=== PATIENT | female | born 1975 | race Caucasian/White ===

== ENCOUNTER → 2019-04-23 11:28 | Outpatient (CLI) | payer BC, SELFPAY ==
--- NOTE | ~2019-04-23 | MM_ITS ---
EXAMINATION: MM screening [facility] BI w raudel HISTORY: Screening mammogram TECHNIQUE: Craniocaudal and mediolateral oblique 3-D tomosynthesis images were obtained and synthetic 2-D images were generated. CAD analysis was submitted and interpreted. COMPARISON: No prior mammogram is available for comparison at this institution. BREAST PARENCHYMAL COMPOSITION: The breasts are heterogeneously dense, which may obscure small masses . FINDINGS: RIGHT BREAST: There are masses in the middle and posterior third of the outer breast. LEFT BREAST: A mass is present in the posterior third of the outer breast. IMPRESSION: 1. Bilateral breast masses which may represent the patient's baseline however no comparison is curren tly available. 2. Comparison with prior mammograms is necessary. BI-RADS Category 0: Incomplete: Needs comparison with prior mammograms. Reviewed, dictated and finalized at location A. IMPRESSION: 1. Bilateral breast masses which may represent the patient's baseline however n o comparison is currently available. 2. Comparison with prior mammograms is necessary. BI-RADS Category 0: Incomplete: Needs comparison with prior mammograms.
== END ==
PROVIDERS: PCP Physician Assistant; Visit Provider Obstetrics & Gynecology
DX: Z12.31 Encounter for screening mammogram for malignant neoplasm of breast (principal); R92.8 Other abnormal and inconclusive findings on diagnostic imaging of breast
CPT/HCPCS: 77063; 77067

== ENCOUNTER → 2019-05-28 09:42 | Outpatient (CLI) | payer BC, SELFPAY ==
--- NOTE | ~2019-05-28 | MMUS_ITS ---
EXAMINATION: MM diagnostic [facility] BI w raudel, US breast BI limited HISTORY: Follow-up bilateral breast masses TECHNIQUE: Additional 3-D tomosynthesis images of the breasts were performed and synthetic 2-D images were generated. CAD analysis was submitted and interpreted. High resolution bilateral breast ultraso und was performed. COMPARISON: Comparison to multiple prior studies sequentially, with oldest reviewed study dated 03/14. FINDINGS: MAMMOGRAPHIC FINDINGS: The breasts are heterogenously dense, which may obscure small masses. There are persistent masses in the lateral aspect of the right breast which are partially obscured by fibroglandular tissue. The foc al mass in the lower aspect of the left breast on MLO view on screening examination is best seen post eriorly and inferiorly and laterally on the medial lateral view. ULTRASOUND: Right breast ultrasound: There are multiple simple and complicated cysts scattered throughout the right breast at 6, 9, 10 and 12:00 positions, largest at 10:00 7 cm from the nipple measuring 12 mm greatest dimension. Left breast ultrasound: At 4:00, 2 cm from the nipple, there is an 5 mm cyst. Also at this location there is an 8 mm cyst. As corresponds to the mass identified on mammogram. IMPRESSION: 1. Benign findings. No evidence for malignancy in either breast. 2. Routine yearly screening mammogram and regular clinical breast examination are recommended. BI-RADS Category 2: Benign finding(s). Reviewed, dictated and finalized at location A. IMPRESSION: 1. Benign findings. No evidence for malignancy in either breast. 2. Routine yearly screening mammogram and regular clinical breast examination a re recommended. BI-RADS Category 2: Benign finding(s).
== END ==
PROVIDERS: Visit Provider Obstetrics & Gynecology
DX: R92.8 Other abnormal and inconclusive findings on diagnostic imaging of breast (principal)
CPT/HCPCS: 76642; 77062; 77066; G0279

== ENCOUNTER → 2020-04-29 11:11 | Outpatient (CLI) | payer BC, SELFPAY ==
--- NOTE | ~2020-04-29 | CT_ITS ---
EXAMINATION: CT abdomen pelvis w con DATE: 04/29/2020 11:38 INDICATION: Umbilical hernia TECHNIQUE: Computed tomography (CT) of the abdomen and pelvis was performed with 100 mL Omnipaque-350 intravenous contrast. Automated exposure control and iterative reconstruction technique were employe d. The dose-length product was 749.29 mGy-cm. COMPARISON: None FINDINGS: Lung bases are clear. Heart size is normal. No pericardial or pleural effusion. A few small well-defi damien low-attenuation hepatic cysts, the largest in the left hepatic lobe measuring 1.3 cm in maximal d iameter. Gallbladder, spleen, pancreas, bilateral adrenal glands and kidneys are normal. No abnormal bowel wall thickening or obstruction. Bladder, anteverted uterus and left adnexa are unremarkable. 4. 4 x 2.9 cm right adnexal cyst. Small fat-containing umbilical hernia measuring 2 cm in maximal diamet er with 10 x 5 mm orifice. No free intraperitoneal gas or fluid. No pathologically enlarged abdominal or pelvic lymphadenopathy. 1.8 cm diameter nonaggressive lytic lesion with well-defined thin sclerot ic margins and without cortical erosion at the superolateral metaphyseal region of the left femoral n dusty. There is ring and arc-like chondroid matrix within the lesion consistent with an enchondroma. IMPRESSION: 1. Small fat-containing umbilical hernia. Reviewed, dictated and finalized at location B.
== END ==
PROVIDERS: PCP Physician Assistant; Visit Provider Physician Assistant
DX: K42.9 Umbilical hernia without obstruction or gangrene (principal); K44.9 Diaphragmatic hernia without obstruction or gangrene
CPT/HCPCS: 74177; Q9967

== ENCOUNTER → 2020-05-19 04:49 | Outpatient (CLI) | payer BC, SELFPAY ==
[2020-05-19 19:04] LABS: SARS-CoV-2 RNA PCR Negative
== END ==
PROVIDERS: PCP Physician Assistant; Visit Provider Surgery
DX: Z01.812 Encounter for preprocedural laboratory examination (principal); Z20.822 Contact with and (suspected) exposure to COVID-19
CPT/HCPCS: C9803; U0003; U0005

== ENCOUNTER 2020-05-22 01:24 | Day surgery (SDC) | payer BC, SELFPAY ==
[2020-05-18 09:44] VITALS: BMI 25.7
[2020-05-22] VITALS (8 sets, daily range): BP systolic 91–112; BP diastolic 50–75; PULSE 42–60; RESP 10–16; TEMP 36.3–36.6; O2SAT 95–100
--- NOTE | 2020-05-22 11:29 | WPDANESEPP ---
Anes - Eval Pre Procedure Procedure: Operation Date: 05/22/20 13:30 Proposed Procedures p Umbilical Hernia Repair With Mesh - Rommel Muñoz DO Date/Time: 05/22/20 11:29 Pre Op Diagnosis: umbilical hernia Patient Data Age: 44 Gender: F Height: 1.83 m Weight: 86 kg Allergies Allergy/AdvReac Type Severity Reaction Status Date / Time Penicillins Allergy Severe SWELLING Verified 05/18/20 09:44 Home Medications Medication Instructions Recorded Confirmed Type etonogestrel 68 mg subdermal 1 implant SUBDERMAL ONCE 04/30/20 05/18/20 History implant multivitamin 1 tablet PO DAILY 04/30/20 05/18/20 History Patient hx anesthesia problems: none Family hx anesthesia problems: none PMFSH Past Medical History Medical History No pertinent past medical history Smoker Surgical History Surgical History History of appendectomy History of endometrial ablation History of knee surgery Family History Family History Father FH: kidney cancer Grandparent Lymphoma Uterine cancer Ovarian cancer Other Diabetes mellitus FH: uterine cancer Low blood pressure Myxoma Social History Social History Smoking status: Never smoker Alcohol intake: current Drinks per week: 3 Substance use: never Substance use type: does not use Living arrangements: with family Additional occupation/education comments: [employer] Operator Spiritual care concerns: No Exam Day of Procedure 05/22/20 11:29
--- NOTE | 2020-05-22 11:44 | WPDHPUPDATE1 ---
History and Physical Update Update Date/Time: 05/22/20 11:44 History and Physical has been reviewed, including an updated exam of the patient. There are NO changes in the patient's condition. Risks, benefits, and alternatives have been discussed and questions answered. Patient agrees to proceed with procedure.
[2020-05-22] MEDS: ACETAMINOPHEN 500 MG TABLET 1000 MG PO (12:15)
[2020-05-22] MEDS: LACTATED RINGERS 1,000 ML 30 ML IV CONT ×3 (12:16→14:53)
[2020-05-22] MEDS: KETOROLAC 15 MG/ML VIAL (*BKC) IV PUSH (12:18)
--- NOTE | 2020-05-22 13:08 | P.PNAN_ITS ---
Anes - Initial Pre Proc Eval Procedure: Operation Date: 05/22/20 13:30 Proposed Procedures p Umbilical Hernia Repair With Mesh - Rommel Muñoz DO Date/Time: 05/22/20 13:08 Surgeon: Rommel Muñoz DO Pre Op Diagnosis: umbilical hernia Patient Data Age: 44 Gender: F Height: 6 ft Weight: 84.25 kg Last Vital Signs Temp 97.3 F L 05/22/20 12:00 Pulse 60 05/22/20 12:00 Resp 16 05/22/20 12:00 BP 95/54 L 05/22/20 12:00 Pulse Ox 100 05/22/20 12:00 Allergies Allergy/AdvReac Type Severity Reaction Status Date / Time Penicillins Allergy Intermediate Hives Verified 05/22/20 12:09 Home Medications Medication Instructions Recorded Confirmed Type etonogestrel 68 mg subdermal 1 implant SUBDERMAL ONCE 04/30/20 05/22/20 History implant multivitamin 1 tablet PO DAILY 04/30/20 05/22/20 History Patient hx anesthesia problems: none Family hx anesthesia problems: none PMFSH Past Medical History Medical History No pertinent past medical history Smoker Surgical History Surgical History History of appendectomy History of endometrial ablation History of knee surgery Family History Family History Father FH: kidney cancer Grandparent Lymphoma Uterine cancer Ovarian cancer Other Diabetes mellitus FH: uterine cancer Low blood pressure Myxoma Social History Social History Smoking status: Never smoker Alcohol intake: current Drinks per week: 3 Substance use: never Substance use type: does not use Living arrangements: with family 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 Questions were solicited and answers provided to the satisfaction of the patient/family/POA.
[2020-05-22] MEDS: ceFAZolin 2 GM/D5W 50 ML 2 GM/50 ML BAG IVPB (13:35)
[2020-05-22] MEDS: BUPIVACAINE/EPINEPHRINE 0.5% 30 ML VIAL INFILTRATE (13:38)
--- NOTE | 2020-05-22 14:04 | PM.PROC ---
Procedure Note - Detailed Date of procedure: 05/22/20 Pre-op diagnosis: umbilical hernia Post-op diagnosis: same Procedure performed: Umbilical hernia repair with Parietex ventral patch Description of procedure: Procedure as well as risks, benefits, and alternatives were discussed with the patient. Written consent was obtained and placed in chart prior to procedure. Patient was brought back to surgical suite. She was placed supine on operating table. She was then intubated by Anesthesia Department. Her abdomen was prepped and draped in sterile fashion using chlorhexidine prep. 0.5% bupivacaine with epinephrine was infiltrated locally around the operative area. A 3 cm curvilinear incision was made just inferior to the umbilicus using a 15 blade scalpel. Electrocautery was used for hemostasis and for dissection down through the subcutaneous fat. Hernia sac was encountered and this was carefully freed up from surrounding subcutaneous fat using electrocautery. The hernia sac was freed up all the way down to the level of the fascia, and then it was reduced back down into the abdominal cavity. The umbilical stalk was then lifted off of the fascia with electrocautery. The hernia defect was then measured. This was measuring approximately 10 mm. The decision was made to use a 4.6 cm Parietex ventral patch. The peritoneum was cleared under the fascia circumferentially around the hernia using blunt dissection and electrocautery. Once a wide enough pocket was created for the mesh, the mesh was then placed within this preperitoneal pocket and laid out flat centered on the hernia defect. The mesh appeared to be sitting in proper position. The mesh was then secured at the 4 corners using 0 Ethibond U-stitch trans fascial sutures. Once all 4 sutures were placed, the mesh was lifted up against the abdominal wall and appeared to be properly centered on the hernia defect. The fascia of the hernia defect was then reapproximated over the mesh using 0 Ethibond [id number] sutures. The 4 transfascial sutures were then tied down in place. The repair was inspected and appeared secure. 0.5% bupivacaine with epinephrine was infiltrated around the fascia and subcutaneous space. The umbilical stalk was then reapproximated to the fascia using a 3 0 Vicryl simple interrupted suture. The deep dermis was reapproximated using 3 0 Vicryl simple interrupted sutures, and then the skin was approximated using 4 Monocryl running subcuticular suture. Exofin glue was then applied on top. The patient was then awakened from anesthesia, extubated, and transferred to recovery. Implants: 4.6 cm Parietex Ventral Patch Anesthesia: GETA and local (0.5% bupivacaine with epinephrine) Surgeon: Rommel Muñoz DO Estimated blood loss (mL): 5 Pathology: none sent Complications: No immediate complications Condition: stable Disposition: same day Findings: This is a 44-year-old woman who presents with an umbilical hernia that has been gradually enlarging over the past several years. She occasionally has some discomfort in this area and notices a bulge protruding out. A recent CT of her abdomen showed evidence a fat containing umbilical hernia. She was evaluated for abdominoplasty but this hernia repair was recommended by her plastic surgeon prior to proceeding with abdominal plasty. The patient does a lot of heavy lifting and is still very physically active. Decision was made to proceed with umbilical hernia repair with mesh. Umbilical hernia repair was performed. The patient had a 1 cm hernia located at the umbilicus causing partial protrusion of her umbilical skin. The hernia defect was cleared in the hernia sac was freed up from the umbilical stalk and then it was reduced back down into the abdominal cavity. A preperitoneal pocket was then created and a 4.6 cm Parietex ventral patch was placed within the preperitoneal space. The mesh was secured with 0 Ethibond U-stitch trans fascial sutu
[2020-05-22] MEDS: fentaNYL CITRATE INJ (*CRX) 100 MCG/2 ML VIAL 25 MCG IV PUSH ×2 (14:50→14:54)
== END 2020-05-22 16:10 | disposition home or self-care (01) ==
PROVIDERS: PCP Physician Assistant; Visit Provider Surgery
PROC: (CPT 49585; principal; 2020-05-22 13:30)
DX: K42.9 Umbilical hernia without obstruction or gangrene (principal)
CPT/HCPCS: 49585; A9270; C1781; C9803; J0330; J0690; J1100; J1885; J2250; J2405; J2704; J2710; J3010; J7120; U0003; U0005

== ENCOUNTER → 2020-06-13 09:06 | Outpatient (CLI) | payer BC, SELFPAY ==
--- NOTE | ~2020-06-13 | MM_ITS ---
EXAMINATION: MM screening [facility] BI w raudel HISTORY: Screening TECHNIQUE: Craniocaudal and mediolateral oblique 3-D tomosynthesis images were obtained and synthetic 2-D images were generated. CAD analysis was submitted and interpreted. COMPARISON: Comparison to multiple prior studies sequentially, with oldest reviewed study dated 03/14. BREAST PARENCHYMAL COMPOSITION: The breasts are heterogenously dense, which may obscure small masses. FINDINGS: There are developing masses in the upper outer quadrant and lower inner quadrant of the rig ht breast. There is a developing mass in the lower outer quadrant of the left breast and clustered in determinate calcifications in the upper inner quadrant of the left breast posteriorly. IMPRESSION: 1. Developing bilateral breast masses. Developing left breast calcifications. 2. Additional mammographic views and possible breast ultrasound are recommended. BI-RADS Category 0: Incomplete: Needs additional imaging evaluation. Reviewed, dictated and finalized at location A. IMPRESSION: 1. Developing bilateral breast masses. Developing left breast calcifications. 2. Additional mammographic views and possible breast ultrasound are recommended . BI-RADS Category 0: Incomplete: Needs additional imaging evaluation.
== END ==
PROVIDERS: PCP Physician Assistant; Visit Provider Obstetrics & Gynecology
DX: Z12.31 Encounter for screening mammogram for malignant neoplasm of breast (principal); R92.8 Other abnormal and inconclusive findings on diagnostic imaging of breast
CPT/HCPCS: 77063; 77067

== ENCOUNTER → 2020-07-09 09:12 | Outpatient (CLI) | payer BC, SELFPAY ==
--- NOTE | ~2020-07-09 | MMUS_ITS ---
EXAMINATION: MM diagnostic mammo BI, US breast BI complete HISTORY: Developing bilateral breast masses and developing left breast calcifications reported on 06/13 bilateral digital screening mammogram TECHNIQUE: Additional 3-D tomosynthesis images of both breasts were performed and synthetic 2-D image s were generated. CAD analysis was submitted and interpreted. High resolution bilateral complete [address] ultrasound was performed. COMPARISON: 06/13/2020 bilateral digital screening mammogram FINDINGS: MAMMOGRAPHIC FINDINGS: Circumscribed low-density up to 1.6 cm opacity in the posterior aspect of the lower outer quadrant of the left breast most likely benign, probably a cyst. Up to 2 cm circumscribed low-density opacity or 2 contiguous opacities in the mid outer right breast, likely benign, probably a cyst. Heterogeneously dense stroma may obscure additional bilateral breast masses. Bilateral complete breas t ultrasound examination was performed. Numerous scattered bilateral breast microcalcifications are noted, including some milk of calcium michelle ign calcifications. ULTRASOUND: There are numerous bilateral simple cysts scattered in both breasts, the largest on the right measuri ng up to 1.3 cm maximal dimension at 10:00 8 cm from the nipple. The largest cyst on the left measure s up to 1.9 cm, situated at 3:00 8 cm from the nipple. There are occasional scattered circumscribed parallel hypoechoic lesions without internal vascularity or posterior shadowing and occasional multicystic circumscribed parallel lesions without suspicious internal vascularity or suspicious shadowing . No suspicious mass or shadowing of either breast is noted. IMPRESSION: 1. Bilateral probable benign masses and benign calcifications 2. Six-month bilateral diagnostic mammography follow-up is recommended, with ultrasound if required BI-RADS category 3, probably benign findings. Reviewed, dictated and finalized at location A. IMPRESSION: 1. Bilateral probable benign masses and benign calcifications 2. Six-month bilateral diagnostic mammography follow-up is recommended, with ul trasound if required BI-RADS category 3, probably benign findings.
== END ==
PROVIDERS: PCP Physician Assistant; Visit Provider Obstetrics & Gynecology
DX: R92.8 Other abnormal and inconclusive findings on diagnostic imaging of breast (principal)
CPT/HCPCS: 76641; 77066

== ENCOUNTER 2021-10-06 13:12 | Emergency (ER) | payer BC, SELFPAY ==
--- NOTE | ~2021-10-06 | CT_ITS ---
EXAMINATION: CT brain wo con INDICATION: Head injury COMPARISON: None TECHNIQUE: Standard unenhanced head CT. The dose-length product (DLP) was 605.33 mGy-cm. The mA was a djusted according to patient size. Iterative reconstruction technique was employed. FINDINGS: There is no intracranial hemorrhage, acute infarction, or abnormal mass lesion. The ventric les are normal. There is no abnormal mass effect or midline shift. The kimball-white matter differentiat ion is normal. The basal cisterns are patent. The orbits are normal. The paranasal sinuses, mastoids and calvarium are normal. IMPRESSION: 1. No acute intracranial abnormality. Reviewed, dictated and finalized at location B.
[2021-10-06 13:27] VITALS: BP 107/73; PULSE 55; RESP 20; TEMP 36.7; O2SAT 99
--- NOTE | 2021-10-06 14:06 | ED.HEATRA ---
HPI - Head Injury General Chief complaint: Head Injury Stated complaint: head injury. concussion s/s Time Seen by Provider: 10/06/21 13:34 History of Present Illness HPI Narrative: 45-year-old female who drove herself to the emergency room presents complaints of a head injury. Patient states that she struck the right side of her head on a dresser approximately 1 hour prior to arrival. Patient denies any LOC or altered mental status. Patient states that she was nauseated. Patient endorses dizziness and headache. Also endorses photosensitivity. Related Data Home Medications Medication Instructions Recorded Confirmed etonogestrel 68 mg subdermal 1 implant subdermal ONCE 04/30/20 07/08/20 implant (Nexplanon) multivitamin 1 tablet PO DAILY 04/30/20 07/08/20 Allergies Allergy/AdvReac Type Severity Reaction Status Date / Time Penicillins Allergy Intermediate Hives Verified 10/06/21 13:57 Review of Systems Review of Systems: CONSTITUTIONAL: Denies fever, chills, or sweats. EYES: Reports of photosensitivity ENT: Denies rhinorrhea, congestion, sore throat, or otalgia. CARDIOVASCULAR: Denies chest pain, palpitations, or edema. RESPIRATORY: Denies cough or dyspnea. GASTROINTESTINAL: Denies abdominal pain, nausea, vomiting, or diarrhea. GENITOURINARY: Denies dysuria or hematuria. SKIN: Denies rash or itching. MUSCULOSKELETAL: Denies back pain, joint pain, or myalgia. NEUROLOGIC: Reports headache and dizziness PSYCHIATRIC: Denies anxiety or depression. 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 HEAD: Normocephalic, atraumatic. EYES: Conjunctivae normal, PERRLA and EOMI. ENT: External nose normal, Nares clear, no rhinorrhea or epistaxis. Mucous membranes moist. Oropharynx without tonsillar hypertrophy exudate or other lesions. External ears normal, bilateral TMs normal bilaterally NECK: Supple. CHEST: Clear to auscultation. No respiratory distress. No wheezes rales or rhonchi. No tenderness. HEART: Regular rate and rhythm. No murmur heard. Normal peripheral pulses. BACK: No cervical/thoracic/lumbar tenderness, step-offs, bony abnormality; FROM EXTREMITIES: Normal range of motion. No edema. No clubbing or cyanosis SKIN: Warm, dry, no rash. Small hematoma noted to the right forehead NEURO: No focal deficits. Alert and oriented x3. MAEW. CN's II-XI intact bilaterally, normal gait PSYCH: Cooperative. Normal mood and affect. Course Vital Signs Vital signs: Vital Signs Temperature 36.7 C 10/06/21 13:27 Pulse Rate 55 L 10/06/21 13:27 Respiratory Rate 20 10/06/21 13:27 Blood Pressure 107/73 10/06/21 13:27 Pulse Oximetry 99 10/06/21 13:27 Temperature 36.7 C 10/06/21 13:27 Pulse Rate 55 L 10/06/21 13:27 Respiratory Rate 20 10/06/21 13:27 Blood Pressure 107/73 10/06/21 13:27 Pulse Oximetry 99 10/06/21 13:27 MDM - Head Injury Imaging Data Radiologist's impression: Impressions Head CT 10/06/21 14:11 IMP
[2021-10-06] MEDS: ONDANSETRON HCL ODT 4 MG TABLET PO (14:17)
== END 2021-10-06 14:52 | disposition home or self-care (01) ==
PROVIDERS: Emergency Provider Nurse Practitioner Family; PCP Physician Assistant
DX: S09.90XA Unspecified injury of head, initial encounter (principal); W22.03XA Walked into furniture, initial encounter
CPT/HCPCS: 70450; 99284; A9270

== ENCOUNTER 2022-06-10 01:30 | Day surgery (SDC) | payer BC, SELFPAY ==
[2022-05-31 14:36] VITALS: BMI 25.2
--- NOTE | 2022-06-09 09:55 | WPDANESEPPF ---
Anes - Initial Pre Proc Eval Procedure: Operation Date: 06/10/22 07:30 Proposed Procedures p Screening Colonoscopy - Hoang Espinoza MD Date/Time: 06/09/22 09:55 Surgeon: Hoang Espinoza MD Pre Op Diagnosis: neoplasm screening Patient Data Age: 46 Gender: F Height: 1.8 m Weight: 82 kg Allergies Allergy/AdvReac Type Severity Reaction Status Date / Time Penicillins Allergy Intermediate Hives Verified 06/10/22 06:16 Home Medications Medication Instructions Recorded Confirmed Type etonogestrel 68 mg subdermal 1 implant subdermal ONCE 04/30/20 06/10/22 History implant (Nexplanon) multivitamin 1 tablet PO DAILY 04/30/20 06/10/22 History ondansetron 4 mg disintegrating 4 mg PO Q8H #14 tabs 10/06/21 06/10/22 Rx tablet Patient hx anesthesia problems: none Family hx anesthesia problems: none Results Review: All pre-operative results and documents have been reviewed as part of the pre-operative evaluation. [facility] Past Medical History Medical History (Updated 06/09/22 @ 09:57 by Cameron Srinivasan DO) Anxiety Surgical History Surgical History H/O umbilical hernia repair Umbilical hernia repair with Parietex ventral patch History of appendectomy History of endometrial ablation History of knee surgery Family History Family History Father FH: kidney cancer Grandparent Lymphoma Uterine cancer Ovarian cancer Other Diabetes mellitus FH: uterine cancer Low blood pressure Myxoma Social History Social History Smoking status: Never smoker Alcohol intake: current Drinks per week: 2 Substance use: never Substance use type: does not use Living arrangements: with family Occupation/Education: occupation 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 Informed Consent: The patient's anesthetic plan and its attendant risks and benefits were discussed with the patient/family/POA. Questions were solicited and answers provided to the satisfaction of the patient/family/POA.
[2022-06-10 06:17] VITALS: BP 99/64; PULSE 59; RESP 16; TEMP 36.2; O2SAT 100
[2022-06-10] MEDS: LACTATED RINGERS 1,000 ML 150 ML IV CONT (06:19)
--- NOTE | 2022-06-10 07:28 | PM.HPGS ---
History of Present Illness History of Present Illness Consent: Risks, benefits, and alternatives have been discussed and questions answered. Patient agrees to proceed with procedure. Chief complaint: neoplasm screening Narrative: [place] is a 46 year old female here for screening colonoscopy, had one about 15 years ago Review of Systems Constitutional: Constitutional: Denies headache(s) and Denies weakness Eyes: Eyes: Denies blurry vision ENT: Reports Normal hearing present, Denies headache(s) and Denies neck pain Cardiovascular: Cardiovascular: Denies chest pain and Denies dyspnea Respiratory: Respiratory: Denies dyspnea Gastrointestinal: Gastrointestinal: Reports no additional gastrointestinal complaints Genitourinary: Genitourinary: Denies dysuria Musculoskeletal: Musculoskeletal: Denies neck pain Integumentary/Breasts: Skin/Breast: Denies dry skin Neurologic: Reports Normal hearing present, Denies headache(s) and Denies weakness Psychiatric: Psychiatric: Denies anxiety Endocrine: Endocrine: Denies change in body appearance Hematologic/Lymphatic: Hematologic/Lymphatic: Denies easy bleeding Allergic/Immunologic: Allergic/Immunologic: Denies urticaria PMFSH Past Medical History Medical History (Updated 06/10/22 @ 07:29 by Hoang Espinoza MD) Anxiety Colon cancer screening Surgical History Surgical History H/O umbilical hernia repair Umbilical hernia repair with Parietex ventral patch History of appendectomy History of endometrial ablation History of knee surgery Family History Family History Father FH: kidney cancer Grandparent Lymphoma Uterine cancer Ovarian cancer Other Diabetes mellitus FH: uterine cancer Low blood pressure Myxoma Social History Social History Smoking status: Never smoker Alcohol intake: current Drinks per week: 2 Substance use: never Substance use type: does not use Living arrangements: with family Occupation/Education: occupation 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 Spiritual care concerns: No Meds Home Medications and Allergies Home Medications Medication Instructions Recorded Confirmed Type etonogestrel 68 mg subdermal 1 implant subdermal ONCE 04/30/20 06/10/22 History implant (Nexplanon) multivitamin 1 tablet PO DAILY 04/30/20 06/10/22 History ondansetron 4 mg disintegrating 4 mg PO Q8H #14 tabs 10/06/21 06/10/22 Rx tablet Allergies Allergy/AdvReac Type Severity Reaction Status Date / Time Penicillins Allergy Intermediate Hives Verified 06/10/22 06:16 Vital Signs Vital Signs - 24 hr 06/10/22 06:17 Temperature 97.1 F L Pulse Rate 59 L Respiratory Rate 16 Blood Pressure 99/64 L Pulse Oximetry 100 Oxygen Delivery Room Air Exam Const: General: comfortable and no acute distress HENMT: Face/Nose/Sinus: Normal nares present Eyes: General: appearance normal, both eyes and all related structures Neck: Neck: no JVD Resp: Auscultation: clear to auscultation bilaterally Cardio: Rate: regular rate Rhythm: regular rhythm GI: Inspection: non-distended GI Palp: Yes Soft to palpation Skin: General skin exam: normal color Neuro: General: gait normal Speech: normal speech Extrem: General: normal to inspection Psych: Mental Status: mental status grossly normal Assessment and Plan Assessment and plan (1) Colon cancer screening: Code(s): Z12.11 - Encounter for screening for malignant neoplasm of colon Status: Acute Assessment and Plan: colonoscopy
[2022-06-10 07:51] VITALS: BP 91/58; PULSE 66; RESP 14; O2SAT 100
[2022-06-10 08:01] VITALS: BP 97/72; PULSE 65; RESP 18; O2SAT 100
[2022-06-10 08:11] VITALS: BP 101/53; PULSE 61; RESP 22; O2SAT 100
== END 2022-06-10 08:16 | disposition home or self-care (01) ==
PROVIDERS: PCP Physician Assistant; Visit Provider Internal Medicine Gastroenterology
PROC: 0DJD8ZZ Inspection of Lower Intestinal Tract, Via Natural or Artificial Opening Endoscopic (ICD-10-PCS; CPT 45378; principal; 2022-06-10 07:30)
DX: Z12.11 Encounter for screening for malignant neoplasm of colon (principal); D12.2 Benign neoplasm of ascending colon; K64.8 Other hemorrhoids
CPT/HCPCS: 45385; 88305; J2704; J7120